=== PATIENT | female | born 1990 | race Caucasian/White ===

== ENCOUNTER 2019-06-14 10:33 | Emergency (ER) | payer OTHER ==
[2019-06-14 12:47] LABS: ABSOLUTE LYMPHOCYTES (AUTO) 0.8 10^3/uL (0.5-4.7); ABSOLUTE MONOCYTES (AUTO) 0.8 10^3/uL (0.1-1.4); ABSOLUTE NEUT (AUTO) 6.7 10^3/uL (1.7-8.2); BASOPHILS % (AUTO) 0.3 % (0-2); EOSINOPHILS % (AUTO) 0.5 % (0-6); HEMATOCRIT 42.1 % (36.0-47.0); HEMOGLOBIN 14.5 g/dL (12.0-15.5); MEAN CORPUSCULAR HEMOGLOBIN 29.3 pg (27.0-33.4); MEAN CORPUSCULAR HGB CONC 34.5 g/dL (32.0-36.0); MEAN CORPUSCULAR VOLUME 85 fl (80-97); MONOCYTES % (AUTO) 9.1 % (3-13); PLATELET COUNT 191 10^3/uL (150-450); RED BLOOD COUNT 4.96 10^6/uL (3.72-5.28); SEGMENTED NEUTROPHILS % (AUTO) 80.1 % (42-78); TOTAL CELLS COUNTED % (AUTO) 100 %; WHITE BLOOD COUNT 8.4 10^3/uL (4.0-10.5)
[2019-06-14 12:54] LABS: APPEARANCE,URINE SLIGHTLY-CLOUDY; BILIRUBIN,URINE NEGATIVE (NEGATIVE); COLOR,URINE YELLOW; GLUCOSE, URINE NEGATIVE (NEGATIVE); KETONES,URINE 20 mg/dL (NEGATIVE); LEUKOCYTE ESTERASE,URINE NEGATIVE (NEGATIVE); NITRITE,URINE NEGATIVE (NEGATIVE); PROTEIN,URINE NEGATIVE (NEGATIVE); URINE SPECIFIC GRAVITY 1.017; UROBILINOGEN,URINE NEGATIVE mg/dL (<2.0)
[2019-06-14 13:15] LABS: ALBUMIN 4.6 g/dL (3.5-5.0); ALKALINE PHOSPHATASE 72 U/L (38-126); ANION GAP 10 (5-19); ASPARTATE AMINO TRANSFERASE 29 U/L (14-36); BILIRUBIN,DIRECT 0.2 mg/dL (0.0-0.4); BILIRUBIN,TOTAL 0.6 mg/dL (0.2-1.3); BLOOD UREA NITROGEN 8 mg/dL (7-20); CALCIUM 9.7 mg/dL (8.4-10.2); CARBON DIOXIDE 27 mmol/L (22-30); CHLORIDE 103 mmol/L (98-107); GLUCOSE 83 mg/dL (75-110); POTASSIUM 4.5 mmol/L (3.6-5.0); TOTAL PROTEIN 7.7 g/dL (6.3-8.2)
--- NOTE | 2019-06-14 13:26 | ER Document Report ---
ED General - General Chief Complaint: Upper Abdominal Pain Stated Complaint: ABDOMINAL PAIN, NAUSEA Time Seen by Provider: 06/14/19 12:38 Primary Care Provider: CATARINA CARLSON MD [Primary Care Provider] - Follow up in 3-5 days Mode of Arrival: Ambulatory Information source: Patient Notes: This 28-year-old female presents emergency department with complaints of right upper quad epigastric abdominal pain. Reports symptoms started as ago. Reports that she had vegetarian meatloaf and grilled potatoes on Wednesday. Reports symptoms started after that. Reports she is had diarrhea a day twice for the past few days. Denies fever vomiting. Reports she just took 1 dose of an antibiotic for chronic cervicitis last but she quit taking because it made her sick. She reports she has not taken any [id number]-[id number]-pazqsyx medication for her diarrhea. TRAVEL OUTSIDE OF THE [place] IN LAST 30 DAYS: No - HPI Onset: Other - 2 days ago Onset/Duration: Persistent Quality of pain: Achy Associated symptoms: Diarrhea, Nausea Exacerbated by: Denies Relieved by: Denies Similar symptoms previously: No Recently seen / treated by doctor: No - Related Data Allergies/Adverse Reactions: No Known Allergies Allergy (Unverified 06/14/19 10:49) Past Medical History - General Information source: Patient Last Menstrual Period: depo - Social History Smoking Status: Never Smoker Chew tobacco use (# tins/day): No Frequency of alcohol use: Occasional Drug Abuse: None Family History: None Patient has suicidal ideation: No Patient has homicidal ideation: No Renal/ Medical History: Reports: Other - Cervicitis Past Surgical History: Reports: Hx Oral Surgery - wisdom teeth Review of Systems - Review of Systems Notes: Review HPI for review of systems., All other systems negative Physical Exam - Vital signs Vitals: Temp Pulse Resp BP Pulse Ox 98.3 F 88 18 121/73 98 06/14/19 10:38 06/14/19 10:38 06/14/19 10:38 06/14/19 10:38 06/14/19 10:38 - Notes Notes: PHYSICAL EXAMINATION: GENERAL: Well-appearing and in no acute distress HEAD: Atraumatic, normocephalic. EYES: Pupils equal round and reactive to light, extraocular movements intact, sclera anicteric, conjunctiva are normal. ENT: nares patent, oropharynx clear without exudates. Moist mucous membranes. NECK: Normal range of motion, supple without lymphadenopathy LUNGS: CTAB and equal. No wheezes rales or rhonchi. HEART: Regular rate and rhythm without murmurs ABDOMEN: Soft, no tenderness. No guarding, no rebound EXTREMITIES: Normal range of motion, no pitting edema. No cyanosis. NEUROLOGICAL: Cranial nerves grossly intact. Normal sensory/motor exams. PSYCH: Normal mood, normal affect. SKIN: Warm, Dry, normal turgor, no rashes or lesions noted Course - Re-evaluation Re-evalutation: 06/14/19 15:35 This 28-year-old female presents emergency department with complaints of right upper quad epigastric pain for the past few days. Denies past medical history. Reports it started after she had vegetarian meat loaf and grilled potatoes. Patient was given some GI cocktail and reports relief the symptoms. Ultrasound labs are negative. Patient was instructed on possible reflux. Instructed to stay away from tomato, spicy greasy foods. She was also instructed to follow-up with GI and her primary care provider. Patient is reports her primary care providers in [place]. Abdomen Ultrasound 06/14/19 13:28 IMPRESSION: NORMAL RIGHT UPPER QUADRANT ULTRASOUND. 06/14/19 12:24 06/14/19 12:24 MCV 85 fl (80-97) 06/14/19 12:24 MCH 29.3 pg (27.0-33.4) 06/14/19 12:24 MCHC 34.5 g/dL (32.0-36.0) 06/14/19 12:24 RDW 13.0 % (11.5-14.0) 06/14/19 12:24 Seg Neutrophils % 80.1 % (42-78) H 06/14/19 12:24 Chloride 103 mmol/L (98-107) 06/14/19 12:24 Carbon Dioxide 27 mmol/L (22-30) 06/14/19 12:24 Anion Gap 10 (-19) 06/14/19 12:24 Est GFR ( Amer) > 60 (>60) 06/14/19 12:24 Glucose 83 mg/dL (75-110) 06/14/19 12:24 Calcium 9.7 mg/dL (8.4-10.2) 06/14/19 12:24 Total Bilirubin 0.6 mg/dL (0.2-1.3) 06/14/19 12:24 AST 29 U/L (14-36) 06/14/19 12:24 Alkaline Phosphatase 72 U/L (38-126) 06/14/19 12:24 Total Protein 7.7 g/dL (6.3-8.2) 06/14/19 12:24 Albumin 4.6 g/dL (3.5-5.0) 06/14/19 12:24 Lipase 21.3 U/L (23-300) L 06/14/19 12:24 Urine Color YELLOW 06/14/19 12:24 Urine Appearance SLIGHTLY-CLOUDY 06/14/19 12:24 Urine pH 6.0 (5.0-9.0) 06/14/19 12:24 Ur Specific [place] 1.017 06/14/19 12:24 Urine Protein NEGATIVE mg/dL (NEGATIVE) 06/14/19 12:24 Urine Glucose (UA) NEGATIVE mg/dL (NEGATIVE) 06/14/19 12:24 Urine Ketones 20 mg/dL (NEGATIVE) H 06/14/19 12:24 Urine Blood NEGATIVE (NEGATIVE) 06/14/19 12:24 Urine Nitrite NEGATIVE (NEGATIVE) 06/14/19 12:24 Ur Leukocyte Esterase NEGATIVE (NEGATIVE) 06/14/19 12:24 Urine WBC (Auto) 0 /HPF 06/14/19 12:24 Urine RBC (Auto) 5 /HPF 06/14/19 12:24 - Vital Signs Vital signs: Temp Pulse Resp BP Pulse Ox 98.6 F 90 18 113/73 99 06/14/19 16:13 06/14/19 16:13 06/14/19 16:13 06/14/19 16:13 06/14/19 16:13 - Laboratory Result Diagrams: 06/14/19 12:24 06/14/19 12:24 Laboratory results interpreted by me: 06/14/19 06/14/19 06/14/19 12:24 12:24 12:24 Lymph % (Auto) 10.0 L Seg Neutrophils % 80.1 H Lipase 21.3 L Urine Ketones 20 H - Diagnostic Test Radiology reviewed: Image reviewed, Reports reviewed Discharge - Discharge Clinical Impression: Nausea Abdominal pain Qualifiers: Abdominal location: epigastric Qualified Code(s): R10.13 - Epigastric pain Condition: Stable Disposition: HOME, SELF-CARE Instructions: Abdominal Pain ([facility]), Antacid Therapy ([facility]), Reflux Disease (GERD) ([facility]) Additional Instructions: *You have been evaluated for abdominal pain, acid reflux *Take antacid as indicated *Avoid acidy, tomato-based spicy foods *Follow up with a primary care provider within one week *Return to ED for worsening condition, changes, needs *Return to ED if not better in 24 hours Forms: Return to Work Referrals: CATARINA CARLSON MD [Primary Care Provider] - Follow up in 3-5 days
[2019-06-14] MEDS ORDERED: MAG HYDROX/AL HYDROX/SIMETH SUSP 30 ML UDCUP PO ONE (13:28)
[2019-06-14] MEDS ORDERED: LIDOCAINE 2% VISCOUS SOLN 20 ML UDCUP PO ONE (13:28)
[2019-06-14] MEDS ORDERED: METOCLOPRAMIDE HCL ORAL SOLN 10 MG/10 ML UDCUP PO ONE (13:28)
--- NOTE | 2019-06-14 15:03 | RADIOLOGY REPORT (SQ) ---
EXAM DESCRIPTION: U/S ABDOMEN LIMITED W/O DOP COMPLETED DATE/TIME: 06/14/2019 2:48 pm REASON FOR STUDY: epigas COMPARISON: None. TECHNIQUE: Dynamic and static grayscale images acquired of the abdomen and recorded on PACS. Additio nal selected color Doppler and spectral images recorded. LIMITATIONS: None. FINDINGS: PANCREAS: No masses. Visualized pancreatic duct normal caliber. LIVER: No masses. Echotexture normal. LIVER VASCULATURE: Normal directional flow of the main portal vein and hepatic veins. GALLBLADDER: No stones. Normal wall thickness. No pericholecystic fluid. ULTRASOUND-DETECTED WILSON'S SIGN: Negative. INTRAHEPATIC DUCTS AND COMMON DUCT: CBD and intrahepatic ducts normal caliber. No filling defects. INFERIOR VENA CAVA: Normal flow. AORTA: No aneurysm. RIGHT KIDNEY: Normal size measuring 11.3 cm. Normal echogenicity. No solid or suspicious masses. No hydronephrosis. No calcifications. PERITONEAL AND RIGHT PLEURAL SPACE: No ascites or effusions. OTHER: No other significant findings. IMPRESSION: NORMAL RIGHT UPPER QUADRANT ULTRASOUND. TECHNICAL DOCUMENTATION: JOB ID: [id number] [employer]- All Rights Reserved Reading location - IP/workstation name: [email or web address]
[2019-06-14 16:14] VITALS: BP 113/73
== END 2019-06-14 16:17 | disposition home or self-care (01) ==
LOC: ER 10:33
DX: R11.0 Nausea (principal); R10.13 Epigastric pain; R10.11 Right upper quadrant pain; R19.7 Diarrhea, unspecified
CPT/HCPCS: 99284; 36415; 83690; 85025; 81025; 80053; 81001; 76705; J3490